=== PATIENT | female | born 1985 | race Caucasian/White ===

== ENCOUNTER 2022-10-09 01:53 | Emergency (ER) | payer BC ==
[2022-10-09] MEDS ORDERED: Ketorolac Tromethamine 30 MG/ML VIAL ONE (02:22)
[2022-10-09] MEDS ORDERED: Ondansetron PF 4 MG/2 ML Vial ONE (02:22)
[2022-10-09 02:23] LABS: #Lymphocytes 0.3 thou/uL (1.20-3.40); #Monocytes 0.2 thou/uL (0.11-0.59); #Neutrophils 9.2 thou/uL (1.40-6.50); %Basophils 0.3 % (0.0-1.0); %Eosinophils 0.4 % (0.0-10.0); %Lymphocytes 3.5 % (21.0-51.0); %Monocytes 2.2 % (0.0-10.0); %Neutrophils 93.6 % (42.0-75.0); Hemoglobin 13.1 g/dL (12.0-16.0); Mean Corpuscular HGB CONC 34.8 g/dL (32.0-36.0); Mean Corpuscular Hemoglobin 34.7 pg (27.0-31.0); Mean Corpuscular Volume 99.9 fl (78.0-98.0); Mean Platelet Volume 10.1 fL (7.4-10.4); Platelet Count 193 10x3/uL (130-400); RBC Distribution Width 11.6 % (11.5-14.5); Red Blood Cell (RBC) Count 3.78 mill/uL (4.20-5.40); White Blood Cell (WBC) Count 9.8 10x3/uL (4.8-10.8)
[2022-10-09 02:44] LABS: BHCG - Serum Negative (NEGATIVE); Pregs Control Background? CLEAR/WHITE (CLR/WHITE); Pregs Control Bar Appear? YES (CONTROL BAR)
[2022-10-09 02:45] LABS: ALT (SGPT) 15 U/L (8-55); AST (SGOT) 17 U/L (5-34); Albumin 4.1 g/dL (3.5-5.0); Alkaline Phosphatase 53 U/L (40-110); Anion Gap 11 mmol/L (10-20); BUN (Urea Nitrogen) 7 mg/dL (7.0-18.7); Bilirubin, Total 1.1 mg/dL (0.2-1.2); Calc. Creatinine Clearance 0 mL/min (70-130); Calcium 8.7 mg/dL (7.8-10.44); Carbon Dioxide 23 mmol/L (22-29); Chloride 106 mmol/L (98-107); Estimated GFR 116; Globulin 2.5 g/dL (2.4-3.5); Glucose 115 mg/dL (70-105); Lipase 10 U/L (8-78); Potassium 3.3 mmol/L (3.5-5.1); Protein, Total 6.6 g/dL (6.0-8.3); Sodium 137 mmol/L (136-145)
[2022-10-09 02:57] LABS: Bacteria/HPF None Seen HPF (None Seen); Bilirubin Negative (Negative); Blood, Urine 2+ (Negative); Clarity Clear (Clear); Glucose, Urine (Dipstick) Normal (Negative); Ketone, Urine Negative (Negative); Leukocyte Negative Leu/uL (Negative); Nitrite Negative (Negative); Protein, Urine (Dipstick) Negative (Neg-Trace); Specific Gravity, Urine 1.014 (1.002-1.036); Squamous Epithelial 0-3 HPF (0-3); Urobilinogen Normal mg/dL (Less than 2); WBC/HPF 0-3 HPF (0-3)
[2022-10-09 03:19] LABS: SARS-CoV-2 NAA Rapid Test Not Detected (NotDetected)
== END 2022-10-09 04:46 | disposition home or self-care (01) ==
LOC: ERS 01:53
DX: K52.9 Noninfective gastroenteritis and colitis, unspecified (principal); K50.90 Crohn's disease, unspecified, without complications
CPT/HCPCS: 36415; 74177; 80053; 81003; 81015; 83605; 83690; 84703; 85025; 87040; 93005; 96374; 96375; J1885; J2405

== ENCOUNTER 2023-07-19 15:14 | Inpatient (IN) | payer BC ==
[2023-07-19 15:47] LABS: #Monocytes 0.9 thou/uL (0.11-0.59); #Neutrophils 12.2 thou/uL (1.40-6.50); %Basophils 0.2 % (0.0-1.0); %Lymphocytes 6.9 % (21.0-51.0); %Neutrophils 86.5 % (42.0-75.0); Hematocrit 42.9 % (36.0-47.0); Hemoglobin 14.3 g/dL (12.0-16.0); Mean Corpuscular HGB CONC 33.3 g/dL (32.0-36.0); Mean Corpuscular Hemoglobin 31.7 pg (27.0-31.0); Mean Corpuscular Volume 95.1 fl (78.0-98.0); Mean Platelet Volume 11.8 fL (7.4-10.4); Platelet Count 329 10x3/uL (130-400); Red Blood Cell (RBC) Count 4.51 mill/uL (4.20-5.40); White Blood Cell (WBC) Count 14.1 10x3/uL (4.8-10.8)
[2023-07-19] MEDS ORDERED: methylPREDNISolone Sod Succ 40 MG VIAL ONE (15:55)
[2023-07-19 16:04] LABS: BHCG - Serum Negative (NEGATIVE); Pregs Control Background? CLEAR/WHITE (CLR/WHITE); Pregs Control Bar Appear? YES (CONTROL BAR)
[2023-07-19 16:08] LABS: ALT (SGPT) 14 U/L (8-55); AST (SGOT) 12 U/L (5-34); Albumin 4.2 g/dL (3.5-5.0); Alkaline Phosphatase 72 U/L (40-110); Anion Gap 15 mmol/L (10-20); BUN (Urea Nitrogen) 9 mg/dL (7.0-18.7); Bilirubin, Total 0.2 mg/dL (0.2-1.2); Calc. Creatinine Clearance 0 mL/min (70-130); Calcium 9.8 mg/dL (7.8-10.44); Carbon Dioxide 26 mmol/L (22-29); Chloride 101 mmol/L (98-107); Estimated GFR 85; Globulin 3.1 g/dL (2.4-3.5); Glucose 126 mg/dL (70-105); Lipase 11 U/L (8-78); Potassium 3.9 mmol/L (3.5-5.1); Protein, Total 7.3 g/dL (6.0-8.3); Sodium 138 mmol/L (136-145)
[2023-07-19] MEDS ORDERED: Ondansetron ODT 4 MG TAB PO PRN (16:51)
[2023-07-19] MEDS ORDERED: Ondansetron PF 4 MG/2 ML Vial IVP PRN (16:51)
[2023-07-19 17:36] LABS: Bilirubin Negative (Negative); Blood, Urine Negative (Negative); CAUTI Indications for Culture Pelvic or flank pain; Clarity Turbid (Clear); Glucose, Urine (Dipstick) Normal (Negative); Ketone, Urine Negative (Negative); Leukocyte Negative Leu/uL (Negative); Nitrite Negative (Negative); Protein, Urine (Dipstick) Negative (Neg-Trace); RBC/HPF 0-3 HPF (0-3); Specific Gravity, Urine 1.012 (1.002-1.036); Squamous Epithelial 0-3 HPF (0-3); Urobilinogen Normal mg/dL (Less than 2); WBC/HPF 0-3 HPF (0-3)
[2023-07-19 17:42] LABS: Bacteria/HPF 1+ HPF (None Seen)
[2023-07-19 17:43] LABS: Urine Culture Reflex No No
[2023-07-19 18:38] VITALS: BMI 20.9
[2023-07-19] MEDS: Acetaminophen 325 MG TAB PO PRN (20:07)
[2023-07-19] MEDS: Sodium Chloride 0.9% 1,000 ML IV SCH (20:08)
[2023-07-19] MEDS: Famotidine/PF 20 mg/2ml Vial SLOW IVP SCH (20:08)
[2023-07-19] MEDS: methylPREDNISolone Sod Succ 40 MG VIAL IVP SCH (21:10)
[2023-07-19] MEDS ORDERED: traZODone HCl 50 MG TAB PO SCH (22:45)
[2023-07-19] MEDS ORDERED: clonazePAM 0.5 MG TAB PO SCH (22:45)
[2023-07-19] MEDS: Loratadine 10 MG TAB PO PRN (23:03)
[2023-07-20] MEDS: Sodium Chloride 0.9% 1,000 ML IV SCH ×4 (05:16→22:30)
[2023-07-20] MEDS: methylPREDNISolone Sod Succ 40 MG VIAL IVP SCH ×3 (05:17→22:20)
[2023-07-20 06:53] LABS: #Monocytes 1.2 thou/uL (0.11-0.59); #Neutrophils 9.2 thou/uL (1.40-6.50); %Basophils 0.2 % (0.0-1.0); %Lymphocytes 13.2 % (21.0-51.0); Hematocrit 36.9 % (36.0-47.0); Hemoglobin 12.2 g/dL (12.0-16.0); Mean Corpuscular HGB CONC 33.1 g/dL (32.0-36.0); Mean Corpuscular Hemoglobin 31.2 pg (27.0-31.0); Mean Corpuscular Volume 94.4 fl (78.0-98.0); Mean Platelet Volume 11.9 fL (7.4-10.4); Platelet Count 295 10x3/uL (130-400); Red Blood Cell (RBC) Count 3.91 mill/uL (4.20-5.40); White Blood Cell (WBC) Count 12.1 10x3/uL (4.8-10.8)
[2023-07-20 07:08] LABS: INR-International Normal Ratio 1.1; PTT 31.4 sec (22.9-36.1); Prothrombin Time 14.5 sec (12.0-14.7)
[2023-07-20 07:15] LABS: Hemoglobin A1c 4.8 % (4.0-6.0)
[2023-07-20 07:21] LABS: ALT (SGPT) 12 U/L (8-55); AST (SGOT) 8 U/L (5-34); Albumin 3.5 g/dL (3.5-5.0); Alkaline Phosphatase 56 U/L (40-110); Anion Gap 13 mmol/L (10-20); BUN (Urea Nitrogen) 9 mg/dL (7.0-18.7); Bilirubin, Total 0.3 mg/dL (0.2-1.2); Calc. Creatinine Clearance 97 mL/min (70-130); Calcium 8.8 mg/dL (7.8-10.44); Carbon Dioxide 24 mmol/L (22-29); Cardiac Risk 2.4 (Less than 4.5); Chloride 106 mmol/L (98-107); Cholesterol 175 mg/dl (< 200 Desired); Estimated GFR 116; Globulin 2.5 g/dL (2.4-3.5); Glucose 115 mg/dL (70-105); HDL Cholesterol 73 mg/dL (>60 Neg Risk); LDL Cholesterol, Calculated 95 mg/dL; Magnesium 2.1 mg/dL (1.6-2.6); Sodium 139 mmol/L (136-145); Triglycerides 37 mg/dL (Less than 150)
[2023-07-20 07:43] LABS: HBSAg Index 0.26 S/CO (0-0.99); Hep A IgM AB Non-Reactive S/CO (NonReactive); Hep A IgM S/CO 0.32 S/CO (0-0.79); Hep B Surf Ag Non-Reactive S/CO (NonReactive); Hep C IgG Ab Non-Reactive S/CO (NonReactive); Hep C Index 0.11 S/CO (0-0.79); Hepatitis B Core IgM Abs Non-Reactive S/CO (NonReactive)
[2023-07-20] MEDS: Famotidine/PF 20 mg/2ml Vial SLOW IVP SCH ×2 (09:23→20:16)
[2023-07-20 11:10] LABS: Free T4 (Free Thyroxine) 0.97 ng/dL (0.70-1.48)
[2023-07-20] MEDS ORDERED: Electrolyte Replacement Protocol 1 EACH FS SCH (15:00)
[2023-07-20] MEDS: Multivit, Therapeutic 1 TAB PO SCH (22:20)
[2023-07-20] MEDS: clonazePAM 0.5 MG TAB PO SCH (22:20)
[2023-07-20] MEDS: Loratadine 10 MG TAB PO PRN (22:21)
[2023-07-20] MEDS: traZODone HCl 50 MG TAB PO SCH (22:21)
[2023-07-21] MEDS: methylPREDNISolone Sod Succ 40 MG VIAL IVP SCH ×3 (05:17→22:07)
[2023-07-21] MEDS: Acetaminophen 325 MG TAB PO PRN (05:19)
[2023-07-21 05:34] LABS: #Monocytes 1.1 thou/uL (0.11-0.59); #Neutrophils 9.6 thou/uL (1.40-6.50); %Basophils 0.1 % (0.0-1.0); %Lymphocytes 12.6 % (21.0-51.0); %Monocytes 9.1 % (0.0-10.0); %Neutrophils 77.3 % (42.0-75.0); Hematocrit 36.5 % (36.0-47.0); Mean Corpuscular HGB CONC 32.9 g/dL (32.0-36.0); Mean Corpuscular Hemoglobin 31.7 pg (27.0-31.0); Mean Corpuscular Volume 96.3 fl (78.0-98.0); Mean Platelet Volume 11.9 fL (7.4-10.4); Platelet Count 299 10x3/uL (130-400); RBC Distribution Width 13.1 % (11.5-14.5); Red Blood Cell (RBC) Count 3.79 mill/uL (4.20-5.40); White Blood Cell (WBC) Count 12.4 10x3/uL (4.8-10.8)
[2023-07-21 06:01] LABS: ALT (SGPT) 8 U/L (8-55); AST (SGOT) 7 U/L (5-34); Albumin 3.5 g/dL (3.5-5.0); Alkaline Phosphatase 50 U/L (40-110); Anion Gap 12 mmol/L (10-20); BUN (Urea Nitrogen) 9 mg/dL (7.0-18.7); Bilirubin, Total 0.2 mg/dL (0.2-1.2); Calc. Creatinine Clearance 94 mL/min (70-130); Carbon Dioxide 25 mmol/L (22-29); Chloride 107 mmol/L (98-107); Estimated GFR 115; Globulin 2.3 g/dL (2.4-3.5); Glucose 113 mg/dL (70-105); Magnesium 1.9 mg/dL (1.6-2.6); Potassium 4.1 mmol/L (3.5-5.1); Protein, Total 5.8 g/dL (6.0-8.3); Sodium 140 mmol/L (136-145)
[2023-07-21] MEDS ORDERED: Magnesium 2 GM/50 ML(in water) 2 GM in Premix Bag 1 BAG IVPB SCH (08:00)
[2023-07-21] MEDS ORDERED: Magnesium Sulfate In Water 4 GM in Premix Bag 1 BAG IVPB SCH (08:00)
[2023-07-21] MEDS: pyridOXINE 50 MG (B6) TAB PO SCH (08:05)
[2023-07-21] MEDS: Venlafaxine XR 37.5 MG CAP PO SCH (08:06)
[2023-07-21] MEDS: Famotidine/PF 20 mg/2ml Vial SLOW IVP SCH ×2 (08:06→22:07)
[2023-07-21] MEDS: FOLATE PO SCH (08:08)
[2023-07-21] MEDS: VITAMIN K2 PO SCH (08:08)
[2023-07-21] MEDS: B12 PO SCH (08:08)
[2023-07-21] MEDS: B6 PO SCH (08:08)
[2023-07-21] MEDS: K1 PO SCH (08:08)
[2023-07-21] MEDS: Calcium Carbonate 600 MG + Vit D TAB PO SCH (08:15)
[2023-07-21 14:05] LABS: Campy jejuni + coli by PCR Negative (Negative); STEC Shiga Toxin 1+2 Negative (Negative); Salmonella spp. by PCR Negative (Negative); Shigella spp + EIEC by PCR Negative (Negative)
[2023-07-21] MEDS: Sodium Chloride 0.9% 1,000 ML IV SCH ×2 (15:30→15:41)
[2023-07-21] MEDS: Loratadine 10 MG TAB PO PRN (22:07)
[2023-07-21] MEDS: clonazePAM 0.5 MG TAB PO SCH (22:07)
[2023-07-21] MEDS: traZODone HCl 50 MG TAB PO SCH (22:07)
[2023-07-21] MEDS: Multivit, Therapeutic 1 TAB PO SCH (22:07)
[2023-07-22] MEDS: Sodium Chloride 0.9% 1,000 ML IV SCH ×3 (03:52→23:57)
[2023-07-22] MEDS: methylPREDNISolone Sod Succ 40 MG VIAL IVP SCH ×3 (05:12→22:23)
[2023-07-22 06:43] LABS: #Monocytes 1.3 thou/uL (0.11-0.59); #Neutrophils 8.6 thou/uL (1.40-6.50); %Basophils 0.2 % (0.0-1.0); %Lymphocytes 14.1 % (21.0-51.0); %Monocytes 11.4 % (0.0-10.0); %Neutrophils 73.4 % (42.0-75.0); Hematocrit 35.5 % (36.0-47.0); Hemoglobin 11.8 g/dL (12.0-16.0); Mean Corpuscular HGB CONC 33.2 g/dL (32.0-36.0); Mean Corpuscular Hemoglobin 31.9 pg (27.0-31.0); Mean Corpuscular Volume 95.9 fl (78.0-98.0); Mean Platelet Volume 12.1 fL (7.4-10.4); Platelet Count 300 10x3/uL (130-400); RBC Distribution Width 13.2 % (11.5-14.5); White Blood Cell (WBC) Count 11.7 10x3/uL (4.8-10.8)
[2023-07-22 07:07] LABS: ALT (SGPT) 9 U/L (8-55); AST (SGOT) 7 U/L (5-34); Albumin 3.3 g/dL (3.5-5.0); Alkaline Phosphatase 48 U/L (40-110); Anion Gap 10 mmol/L (10-20); BUN (Urea Nitrogen) 7 mg/dL (7.0-18.7); Bilirubin, Total 0.3 mg/dL (0.2-1.2); Calc. Creatinine Clearance 100 mL/min (70-130); Calcium 8.5 mg/dL (7.8-10.44); Carbon Dioxide 25 mmol/L (22-29); Chloride 106 mmol/L (98-107); Estimated GFR 117; Globulin 2.4 g/dL (2.4-3.5); Glucose 113 mg/dL (70-105); Magnesium 2.1 mg/dL (1.6-2.6); Protein, Total 5.7 g/dL (6.0-8.3); Sodium 137 mmol/L (136-145)
[2023-07-22] MEDS: pyridOXINE 50 MG (B6) TAB PO SCH (08:42)
[2023-07-22] MEDS: Calcium Carbonate 600 MG + Vit D TAB PO SCH (08:42)
[2023-07-22] MEDS: B12 PO SCH (08:43)
[2023-07-22] MEDS: Famotidine/PF 20 mg/2ml Vial SLOW IVP SCH ×2 (08:43→22:23)
[2023-07-22] MEDS: B6 PO SCH (08:43)
[2023-07-22] MEDS: VITAMIN K2 PO SCH (08:43)
[2023-07-22] MEDS: K1 PO SCH (08:43)
[2023-07-22] MEDS: FOLATE PO SCH (08:43)
[2023-07-22] MEDS: Venlafaxine XR 37.5 MG CAP PO SCH (08:43)
[2023-07-22] MEDS: Multivit, Therapeutic 1 TAB PO SCH (22:22)
[2023-07-22] MEDS: clonazePAM 0.5 MG TAB PO SCH (22:22)
[2023-07-22] MEDS: traZODone HCl 50 MG TAB PO SCH (22:23)
[2023-07-22] MEDS: Loratadine 10 MG TAB PO PRN (22:25)
[2023-07-23] MEDS: methylPREDNISolone Sod Succ 40 MG VIAL IVP SCH ×3 (05:39→21:59)
[2023-07-23 06:29] LABS: #Monocytes 1.4 thou/uL (0.11-0.59); #Neutrophils 8.6 thou/uL (1.40-6.50); %Basophils 0.3 % (0.0-1.0); %Lymphocytes 12.5 % (21.0-51.0); %Monocytes 11.9 % (0.0-10.0); %Neutrophils 74.2 % (42.0-75.0); Hematocrit 38.2 % (36.0-47.0); Hemoglobin 12.6 g/dL (12.0-16.0); Mean Corpuscular Volume 93.9 fl (78.0-98.0); Mean Platelet Volume 12.1 fL (7.4-10.4); Platelet Count 314 10x3/uL (130-400); Red Blood Cell (RBC) Count 4.07 mill/uL (4.20-5.40); White Blood Cell (WBC) Count 11.6 10x3/uL (4.8-10.8)
[2023-07-23 07:05] LABS: ALT (SGPT) 10 U/L (8-55); AST (SGOT) 8 U/L (5-34); Albumin 3.6 g/dL (3.5-5.0); Alkaline Phosphatase 58 U/L (40-110); Anion Gap 13 mmol/L (10-20); BUN (Urea Nitrogen) 7 mg/dL (7.0-18.7); Bilirubin, Total 0.4 mg/dL (0.2-1.2); Calc. Creatinine Clearance 95 mL/min (70-130); Calcium 8.6 mg/dL (7.8-10.44); Carbon Dioxide 24 mmol/L (22-29); Chloride 105 mmol/L (98-107); Estimated GFR 115; Globulin 2.4 g/dL (2.4-3.5); Glucose 110 mg/dL (70-105); Potassium 4.1 mmol/L (3.5-5.1); Sodium 138 mmol/L (136-145)
[2023-07-23] MEDS ORDERED: Magnesium 2 GM/50 ML(in water) 2 GM in Premix Bag 1 BAG IVPB SCH (08:00)
[2023-07-23] MEDS: Famotidine/PF 20 mg/2ml Vial SLOW IVP SCH ×2 (09:00→21:59)
[2023-07-23] MEDS: Venlafaxine XR 37.5 MG CAP PO SCH (09:00)
[2023-07-23] MEDS: K1 PO SCH (09:00)
[2023-07-23] MEDS: pyridOXINE 50 MG (B6) TAB PO SCH (09:00)
[2023-07-23] MEDS: Calcium Carbonate 600 MG + Vit D TAB PO SCH (09:00)
[2023-07-23] MEDS: VITAMIN K2 PO SCH (09:00)
[2023-07-23] MEDS: FOLATE PO SCH (09:01)
[2023-07-23] MEDS: Sodium Chloride 0.9% 1,000 ML IV SCH ×2 (09:01→22:09)
[2023-07-23] MEDS: B6 PO SCH (09:01)
[2023-07-23] MEDS: B12 PO SCH (09:01)
[2023-07-23] MEDS: Multivit, Therapeutic 1 TAB PO SCH (21:58)
[2023-07-23] MEDS: traZODone HCl 50 MG TAB PO SCH (21:58)
[2023-07-23] MEDS: Loratadine 10 MG TAB PO PRN (21:58)
[2023-07-23] MEDS: clonazePAM 0.5 MG TAB PO SCH (21:58)
[2023-07-24] MEDS: Sodium Chloride 0.9% 1,000 ML IV SCH ×2 (06:01→09:04)
[2023-07-24 06:47] LABS: #Monocytes 1.6 thou/uL (0.11-0.59); #Neutrophils 9.2 thou/uL (1.40-6.50); %Basophils 0.2 % (0.0-1.0); %Lymphocytes 11.9 % (21.0-51.0); %Monocytes 12.7 % (0.0-10.0); %Neutrophils 74.6 % (42.0-75.0); Hemoglobin 12.7 g/dL (12.0-16.0); Mean Corpuscular HGB CONC 33.4 g/dL (32.0-36.0); Mean Corpuscular Hemoglobin 31.6 pg (27.0-31.0); Mean Corpuscular Volume 94.5 fl (78.0-98.0); Platelet Count 307 10x3/uL (130-400); Red Blood Cell (RBC) Count 4.02 mill/uL (4.20-5.40); White Blood Cell (WBC) Count 12.3 10x3/uL (4.8-10.8)
[2023-07-24 07:14] LABS: ALT (SGPT) 10 U/L (8-55); AST (SGOT) 8 U/L (5-34); Albumin 3.5 g/dL (3.5-5.0); Alkaline Phosphatase 52 U/L (40-110); Anion Gap 12 mmol/L (10-20); BUN (Urea Nitrogen) 8 mg/dL (7.0-18.7); Bilirubin, Total 0.4 mg/dL (0.2-1.2); Calc. Creatinine Clearance 95 mL/min (70-130); Calcium 8.8 mg/dL (7.8-10.44); Carbon Dioxide 26 mmol/L (22-29); Chloride 105 mmol/L (98-107); Estimated GFR 115; Globulin 2.5 g/dL (2.4-3.5); Glucose 109 mg/dL (70-105); Iron 57 ug/dL (50-170); Iron Binding Capacity, Total 281 mcg/dL (265-497); Magnesium 2.2 mg/dL (1.6-2.6); Potassium 4.1 mmol/L (3.5-5.1); Sodium 139 mmol/L (136-145)
[2023-07-24] MEDS ORDERED: clonazePAM 0.5 MG TAB PO SCH (08:30)
[2023-07-24] MEDS ORDERED: predniSONE 20 MG TAB PO SCH (09:00)
[2023-07-24] MEDS: pyridOXINE 50 MG (B6) TAB PO SCH (09:04)
[2023-07-24] MEDS: Acetaminophen 325 MG TAB PO PRN ×2 (09:05→22:50)
[2023-07-24] MEDS: Venlafaxine XR 37.5 MG CAP PO SCH (09:06)
[2023-07-24] MEDS: Famotidine/PF 20 mg/2ml Vial SLOW IVP SCH ×2 (09:06→22:30)
[2023-07-24] MEDS: B12 PO SCH (09:06)
[2023-07-24] MEDS: Calcium Carbonate 600 MG + Vit D TAB PO SCH (09:06)
[2023-07-24] MEDS: K1 PO SCH (09:06)
[2023-07-24] MEDS: B6 PO SCH (09:06)
[2023-07-24] MEDS: FOLATE PO SCH (09:06)
[2023-07-24] MEDS: VITAMIN K2 PO SCH (09:06)
[2023-07-24] MEDS: Multivit, Therapeutic 1 TAB PO SCH (22:31)
[2023-07-24] MEDS: clonazePAM 0.5 MG TAB PO SCH (22:31)
[2023-07-24] MEDS: traZODone HCl 50 MG TAB PO SCH (22:31)
[2023-07-25] MEDS: Sodium Chloride 0.9% 1,000 ML IV SCH ×2 (01:31→15:50)
[2023-07-25 05:54] LABS: #Eosinphils 0.2 thou/uL (0.0-0.7); #Monocytes 1.7 thou/uL (0.11-0.59); #Neutrophils 7.2 thou/uL (1.40-6.50); %Basophils 0.2 % (0.0-1.0); %Eosinophils 1.5 % (0.0-10.0); %Lymphocytes 26.7 % (21.0-51.0); %Monocytes 13.2 % (0.0-10.0); %Neutrophils 57.6 % (42.0-75.0); Hematocrit 36.2 % (36.0-47.0); Hemoglobin 12.2 g/dL (12.0-16.0); Mean Corpuscular HGB CONC 33.7 g/dL (32.0-36.0); Mean Corpuscular Hemoglobin 31.8 pg (27.0-31.0); Mean Corpuscular Volume 94.3 fl (78.0-98.0); Mean Platelet Volume 11.9 fL (7.4-10.4); Platelet Count 278 10x3/uL (130-400); Red Blood Cell (RBC) Count 3.84 mill/uL (4.20-5.40); White Blood Cell (WBC) Count 12.5 10x3/uL (4.8-10.8)
[2023-07-25 06:25] LABS: ALT (SGPT) 10 U/L (8-55); AST (SGOT) 8 U/L (5-34); Albumin 3.2 g/dL (3.5-5.0); Alkaline Phosphatase 47 U/L (40-110); Anion Gap 8 mmol/L (10-20); BUN (Urea Nitrogen) 8 mg/dL (7.0-18.7); Bilirubin, Total 0.4 mg/dL (0.2-1.2); Calc. Creatinine Clearance 93 mL/min (70-130); Calcium 8.5 mg/dL (7.8-10.44); Carbon Dioxide 28 mmol/L (22-29); Chloride 105 mmol/L (98-107); Estimated GFR 113; Globulin 2.2 g/dL (2.4-3.5); Glucose 92 mg/dL (70-105); Potassium 3.6 mmol/L (3.5-5.1); Protein, Total 5.4 g/dL (6.0-8.3); Sodium 137 mmol/L (136-145)
[2023-07-25] MEDS: Loratadine 10 MG TAB PO PRN (07:06)
[2023-07-25] MEDS: Acetaminophen 325 MG TAB PO PRN (07:06)
[2023-07-25] MEDS ORDERED: Magnesium 2 GM/50 ML(in water) 2 GM in Premix Bag 1 BAG IVPB SCH (08:00)
[2023-07-25] MEDS ORDERED: Glucagon 1 MG/ML KIT IVP SCH (08:30)
[2023-07-25] MEDS: Venlafaxine XR 37.5 MG CAP PO SCH (10:05)
[2023-07-25] MEDS: predniSONE 20 MG TAB PO SCH (10:06)
[2023-07-25] MEDS: Calcium Carbonate 600 MG + Vit D TAB PO SCH (10:06)
[2023-07-25] MEDS: pyridOXINE 50 MG (B6) TAB PO SCH (10:07)
[2023-07-25] MEDS: K1 PO SCH (10:08)
[2023-07-25] MEDS: FOLATE PO SCH (10:08)
[2023-07-25] MEDS: Famotidine/PF 20 mg/2ml Vial SLOW IVP SCH (10:08)
[2023-07-25] MEDS: VITAMIN K2 PO SCH (10:08)
[2023-07-25] MEDS: B12 PO SCH (10:08)
[2023-07-25] MEDS: B6 PO SCH (10:08)
[2023-07-25] MEDS ORDERED: Magnevist 469MG/ML 20 ML VIAL ONE (13:43)
[2023-07-25] MEDS: Multivit, Therapeutic 1 TAB PO SCH (22:17)
[2023-07-25] MEDS: traZODone HCl 50 MG TAB PO SCH (22:18)
[2023-07-25] MEDS: clonazePAM 0.5 MG TAB PO SCH (22:18)
[2023-07-26] MEDS: Sodium Chloride 0.9% 1,000 ML IV SCH ×2 (02:44→18:03)
[2023-07-26 05:32] LABS: #Eosinphils 0.4 thou/uL (0.0-0.7); #Monocytes 1.6 thou/uL (0.11-0.59); #Neutrophils 9.2 thou/uL (1.40-6.50); %Basophils 0.1 % (0.0-1.0); %Eosinophils 2.7 % (0.0-10.0); %Lymphocytes 17.1 % (21.0-51.0); %Monocytes 11.8 % (0.0-10.0); %Neutrophils 67.6 % (42.0-75.0); Hematocrit 36.9 % (36.0-47.0); Hemoglobin 12.4 g/dL (12.0-16.0); Mean Corpuscular HGB CONC 33.6 g/dL (32.0-36.0); Mean Corpuscular Hemoglobin 31.8 pg (27.0-31.0); Mean Corpuscular Volume 94.6 fl (78.0-98.0); Mean Platelet Volume 11.5 fL (7.4-10.4); Platelet Count 271 10x3/uL (130-400); RBC Distribution Width 13.1 % (11.5-14.5); White Blood Cell (WBC) Count 13.5 10x3/uL (4.8-10.8)
[2023-07-26 06:07] LABS: ALT (SGPT) 11 U/L (8-55); AST (SGOT) 7 U/L (5-34); Albumin 3.2 g/dL (3.5-5.0); Alkaline Phosphatase 50 U/L (40-110); Anion Gap 10 mmol/L (10-20); BUN (Urea Nitrogen) 5 mg/dL (7.0-18.7); Bilirubin, Total 0.4 mg/dL (0.2-1.2); Calc. Creatinine Clearance 88 mL/min (70-130); Calcium 8.5 mg/dL (7.8-10.44); Carbon Dioxide 27 mmol/L (22-29); Chloride 104 mmol/L (98-107); Estimated GFR 106; Globulin 2.3 g/dL (2.4-3.5); Glucose 79 mg/dL (70-105); Magnesium 2.2 mg/dL (1.6-2.6); Potassium 3.6 mmol/L (3.5-5.1); Protein, Total 5.5 g/dL (6.0-8.3); Sodium 137 mmol/L (136-145)
[2023-07-26] MEDS: Acetaminophen 325 MG TAB PO PRN ×2 (08:41→19:34)
[2023-07-26] MEDS: Venlafaxine XR 37.5 MG CAP PO SCH (08:42)
[2023-07-26] MEDS: predniSONE 20 MG TAB PO SCH (08:43)
[2023-07-26] MEDS: pyridOXINE 50 MG (B6) TAB PO SCH (08:43)
[2023-07-26] MEDS: Calcium Carbonate 600 MG + Vit D TAB PO SCH (08:43)
[2023-07-26] MEDS: FOLATE PO SCH (08:51)
[2023-07-26] MEDS: B6 PO SCH (08:51)
[2023-07-26] MEDS: B12 PO SCH (08:51)
[2023-07-26] MEDS: VITAMIN K2 PO SCH (08:52)
[2023-07-26] MEDS: K1 PO SCH (08:52)
[2023-07-26] MEDS: Loratadine 10 MG TAB PO PRN (08:58)
[2023-07-26] MEDS: clonazePAM 0.5 MG TAB PO SCH (22:09)
[2023-07-26] MEDS: Multivit, Therapeutic 1 TAB PO SCH (22:09)
[2023-07-26] MEDS: traZODone HCl 50 MG TAB PO SCH (22:09)
[2023-07-27] MEDS: Sodium Chloride 0.9% 1,000 ML IV SCH (03:18)
[2023-07-27 06:18] LABS: #Eosinphils 0.3 thou/uL (0.0-0.7); #Monocytes 1.3 thou/uL (0.11-0.59); #Neutrophils 8.3 thou/uL (1.40-6.50); %Basophils 0.2 % (0.0-1.0); %Eosinophils 2.5 % (0.0-10.0); %Lymphocytes 22.4 % (21.0-51.0); %Monocytes 10.1 % (0.0-10.0); %Neutrophils 63.9 % (42.0-75.0); Hematocrit 38.9 % (36.0-47.0); Hemoglobin 12.8 g/dL (12.0-16.0); Mean Corpuscular HGB CONC 32.9 g/dL (32.0-36.0); Mean Corpuscular Hemoglobin 31.5 pg (27.0-31.0); Mean Corpuscular Volume 95.8 fl (78.0-98.0); Mean Platelet Volume 11.6 fL (7.4-10.4); Platelet Count 299 10x3/uL (130-400); RBC Distribution Width 13.2 % (11.5-14.5); Red Blood Cell (RBC) Count 4.06 mill/uL (4.20-5.40); White Blood Cell (WBC) Count 12.9 10x3/uL (4.8-10.8)
[2023-07-27 06:41] LABS: Anion Gap 11 mmol/L (10-20); BUN (Urea Nitrogen) 5 mg/dL (7.0-18.7); Calc. Creatinine Clearance 95 mL/min (70-130); Calcium 8.9 mg/dL (7.8-10.44); Carbon Dioxide 28 mmol/L (22-29); Chloride 104 mmol/L (98-107); Estimated GFR 115; Glucose 80 mg/dL (70-105); Potassium 3.6 mmol/L (3.5-5.1); Sodium 139 mmol/L (136-145)
[2023-07-27] MEDS: Acetaminophen 325 MG TAB PO PRN (07:24)
[2023-07-27 07:48] VITALS: BP 95/59; TEMP 98
[2023-07-27] MEDS: Calcium Carbonate 600 MG + Vit D TAB PO SCH (09:09)
[2023-07-27] MEDS: pyridOXINE 50 MG (B6) TAB PO SCH (09:10)
[2023-07-27] MEDS: predniSONE 20 MG TAB PO SCH (09:10)
[2023-07-27] MEDS: Venlafaxine XR 37.5 MG CAP PO SCH (09:10)
[2023-07-27] MEDS: Loratadine 10 MG TAB PO PRN (09:13)
[2023-07-27] MEDS: VITAMIN K2 PO SCH (09:13)
[2023-07-27] MEDS: FOLATE PO SCH (09:13)
[2023-07-27] MEDS: K1 PO SCH (09:13)
[2023-07-27] MEDS: B6 PO SCH (09:13)
[2023-07-27] MEDS: B12 PO SCH (09:13)
== END 2023-07-27 11:09 | disposition home or self-care (01) | DRG 386 ==
LOC: ERS 15:14 → SUATTDRO 15:14 → T4-A 16:53
PROVIDERS: ADMIT Family Medicine; ATTEND Internal Medicine
DX: K50.111 Crohn's disease of large intestine with rectal bleeding (principal); B37.0 Candidal stomatitis; E44.0 Moderate protein-calorie malnutrition; M19.90 Unspecified osteoarthritis, unspecified site; K52.9 Noninfective gastroenteritis and colitis, unspecified; F32.A Depression, unspecified; F41.9 Anxiety disorder, unspecified; R42 Dizziness and giddiness; D64.9 Anemia, unspecified; B37.9 Candidiasis, unspecified; E88.09 Other disorders of plasma-protein metabolism, not elsewhere classified; Z68.20 Body mass index [BMI] 20.0-20.9, adult; Z88.1 Allergy status to other antibiotic agents; Z79.899 Other long term (current) drug therapy; Z90.89 Acquired absence of other organs; Z79.52 Long term (current) use of systemic steroids; E86.0 Dehydration; E05.90 Thyrotoxicosis, unspecified without thyrotoxic crisis or storm; Z91.018 Allergy to other foods
CPT/HCPCS: 36415; 74183; 80048; 80053; 80061; 80074; 81001; 82728; 83036; 83540; 83550; 83605; 83630; 83690; 83735; 84439; 84443; 84481; 84703; 85025; 85610; 85730; 86140; 86850; 86900; 86901; 87040; 87177; 87324; 87449; 87505; 96374; A9579; J2920; J3475; J7050; J7512; S0028

== ENCOUNTER 2023-11-22 06:52 | Emergency (ER) | payer BC ==
[2023-11-22] MEDS ORDERED: Ketorolac Tromethamine 30 MG (1 mL) VIAL ONE (07:47)
== END 2023-11-22 08:24 | disposition home or self-care (01) ==
LOC: ERS 06:52
DX: M25.512 Pain in left shoulder (principal)
CPT/HCPCS: 96372; J1885